=== PATIENT | male | born 1970 | race Caucasian/White ===

== ENCOUNTER 2016-12-02 01:43 | Emergency (ER) | payer OTHER, SELFPAY ==
[2016-12-02 04:05] VITALS: BP 122/76
--- NOTE | 2016-12-02 04:14 | ER ---
DATE SEEN: 12/02/2016 TIME SEEN: 0330 hours. CHIEF COMPLAINT: Chest pain. HISTORY OF PRESENT ILLNESS: A 46-year-old male complaining of pressure in the chest described as indigestion or vise-like tempering kiln tender. This woke him up today. He has had this on and off for the last month. He saw Dr. Colindres in the clinic and the EKG at that time was negative. REVIEW OF SYSTEMS: He complains of no fever or chills. No cough. No headaches. No shortness of breath. Admits to having been stressed. SOCIAL HISTORY: Does not smoke or drink. FAMILY HISTORY: Stroke in the father was in the 80s. PHYSICAL EXAMINATION: VITAL SIGNS: Blood pressure 150/100 initially, pulse is 70, and temperature 97.5. ENT: Negative. CHEST: Clear. CARDIOVASCULAR: Normal. NECK: Supple. No carotid bruits. DIAGNOSTIC/LABORATORY DATA: EKG normal sinus rhythm. Labs including D-dimer and troponin negative. IMPRESSION: Atypical chest pain. PLAN: Chest x-ray was unremarkable. I advised the patient to stay for the night and have troponin and EKG in the morning, but he declined feeling better and is aware that this could still be coronary syndrome. He will have a stress test within 72 hours. He signed against medical advice. /[id number] PANCHO/SOFIE
--- NOTE | 2016-12-04 12:03 | CR ---
INDICATION: Chest pain. CHEST: AP upright portable view of the chest 12/02/2016. No comparisons. Overlying EKG leads are noted. Heart size is difficult to evaluate and most likely is within normal limits. The aorta is slightly tortuous. A definite active infiltrate or effusion was not identified. IMPRESSION: No acute process. MTDD
== END 2016-12-02 04:00 | disposition left against medical advice (07) ==
LOC: FB.ED 01:43
DX: R07.89 Other chest pain (principal)
CPT/HCPCS: 36415; 71010; 80053; 82553; 83880; 84484; 85025; 85379; 93005; 99283; 99285